=== PATIENT | female | born 1940 | race Caucasian/White ===

== ENCOUNTER 2024-09-08 20:28 | Inpatient (IN) | payer OTHER, BC ==
[2024-09-08 21:33] LABS: EPI CELLS 9 /uL (0-25.1); HYALINE CASTS 1 /uL (0-3.1); PH,URINE 5.5 (5.0-8.0); URINE APPEARANCE CLOUDY; URINE BACTERIA >9,000 /uL (0-1359); URINE BILIRUBIN NEGATIVE (NEGATIVE); URINE COLOR YELLOW; URINE GLUCOSE (UA) NEGATIVE (NEGATIVE); URINE KETONE NEGATIVE (NEGATIVE); URINE LEUK ESTERASE 3+ (NEGATIVE); URINE NITRITE POSITIVE (NEGATIVE); URINE PROTEIN TRACE (NEGATIVE); URINE RBC 21 /uL (0-23.9); URINE UROBILINOGEN 0.2 mg/dL (0.2-1.0); URINE WBC 1902 /uL (0-25.8)
[2024-09-08 21:59] LABS: ABSOLUTE IMMATURE GRANULOCYTES 0.06 x10^3/uL (0.0-0.031); BASOPHILS # 0.07 x10^3/uL (0.01-0.08); EOSINOPHILS # 0.12 x10^3/uL (0.04-0.36); HEMATOCRIT 28.5 % (34.1-44.9); HEMOGLOBIN 8.5 g/dL (11.2-15.7); MCHC 29.8 g/dl (32.2-35.5); MEAN CELL VOLUME 81.4 fl (79.4-94.8); MEAN PLT VOLUME 9.2 fl (9.4-12.3); MONOCYTE # 1.27 x10^3/uL (0.24-0.86); MONOCYTE % 10.4 % (4.7-12.5); PLATELET COUNT 423 x10^3/uL (182-369); RDW 15.4 % (12.5-17.0)
[2024-09-08 22:13] LABS: POTASSIUM 4.4 mmol/L (3.5-5.1)
[2024-09-08 22:17] LABS: ALBUMIN 3.4 g/dl (3.4-5.0); BLOOD UREA NITROGEN 21.8 mg/dL (7-18); CALCIUM 9.5 mg/dL (8.5-10.1); MAGNESIUM 2.4 mg/dL (1.8-2.4)
[2024-09-08 22:20] LABS: CREATININE 0.9 mg/dL (0.55-1.3)
[2024-09-08 22:21] LABS: BILIRUBIN,TOTAL 0.7 mg/dL (0.2-1)
[2024-09-08 22:22] LABS: TOT PROT 6.5 g/dl (6.4-8.2)
[2024-09-08] MEDS: CEFTRIAXONE 1,000 MG in DEXTROSE 5%-WATER - 50 ML IVPB ONE (22:55)
[2024-09-08] MEDS ORDERED: CEFTRIAXONE 1 G/50 ML PREMIX 50 ML IVPB ONE (22:58)
[2024-09-09] MEDS: AZITHROMYCIN IVPB 500 MG in DEXTROSE 5%-WATER - 250 ML IVPB ONE (00:06)
[2024-09-09] MEDS ORDERED: AZITHROMYCIN IVPB 500 MG/250 ML BAG IVPB ONE (00:07)
[2024-09-09] MEDS: SODIUM CHLORIDE 1,000 ML IV SCH (01:06)
[2024-09-09 01:58] VITALS: BMI 24.9
[2024-09-09] MEDS: IBUPROFEN 600 MG TABLET (FP) PO ONE (03:21)
[2024-09-09] MEDS: diphenhydrAMINE HCL 25 MG CAPSULE (FP) PO PRN (03:23)
[2024-09-09 07:20] LABS: Reticulocyte % 2.49 % (0.5-1.7)
[2024-09-09 07:22] LABS: ABSOLUTE IMMATURE GRANULOCYTES 0.03 x10^3/uL (0.0-0.031); BASOPHILS # 0.05 x10^3/uL (0.01-0.08); EOSINOPHIL % 4.2 % (0.7-5.8); EOSINOPHILS # 0.39 x10^3/uL (0.04-0.36); HEMATOCRIT 26.3 % (34.1-44.9); HEMOGLOBIN 7.6 g/dL (11.2-15.7); MCHC 28.9 g/dl (32.2-35.5); MEAN CELL VOLUME 83.2 fl (79.4-94.8); MEAN PLT VOLUME 9.4 fl (9.4-12.3); MONOCYTE # 1.23 x10^3/uL (0.24-0.86); MONOCYTE % 13.3 % (4.7-12.5); PLATELET COUNT 396 x10^3/uL (182-369); RDW 15.5 % (12.5-17.0)
[2024-09-09 07:50] LABS: POTASSIUM 4.2 mmol/L (3.5-5.1)
[2024-09-09 07:55] LABS: BLOOD UREA NITROGEN 19.9 mg/dL (7-18)
[2024-09-09 07:58] LABS: CALCIUM 9.2 mg/dL (8.5-10.1); CREATININE 0.8 mg/dL (0.55-1.3); MAGNESIUM 2.1 mg/dL (1.8-2.4)
[2024-09-09] MEDS: ACETAMINOPHEN 325 MG TABLET (FP) PO PRN (08:59)
[2024-09-09] MEDS: CEFTRIAXONE 1 G/50 ML PREMIX 50 ML IVPB SCH (09:11)
[2024-09-09] MEDS: ENOXAPARIN NA (PORCINE) 40 MG/0.4 ML DISP.SYRIN SQ SCH (09:57)
[2024-09-09] MEDS: ASPIRIN COATED 81 MG TABLET.EC PO SCH (09:57)
[2024-09-09] MEDS: VALSARTAN 160 MG TABLET PO SCH (10:05)
[2024-09-09] MEDS: amLODIPine BESYLATE 5 MG TABLET (FP) PO SCH (10:06)
[2024-09-09] MEDS: ATORVASTATIN CA 20 MG TABLET (FP) PO SCH (21:55)
[2024-09-10 07:12] LABS: ABSOLUTE IMMATURE GRANULOCYTES 0.04 x10^3/uL (0.0-0.031); EOSINOPHIL % 8.2 % (0.7-5.8); HEMATOCRIT 25.2 % (34.1-44.9); HEMOGLOBIN 7.3 g/dL (11.2-15.7); MEAN CELL VOLUME 84.6 fl (79.4-94.8); MEAN PLT VOLUME 9.2 fl (9.4-12.3); PLATELET COUNT 328 x10^3/uL (182-369); RDW 15.7 % (12.5-17.0)
[2024-09-10 07:58] LABS: BLOOD UREA NITROGEN 12.6 mg/dL (7-18)
[2024-09-10 07:59] LABS: ALBUMIN 2.7 g/dl (3.4-5.0); MAGNESIUM 2.2 mg/dL (1.8-2.4)
[2024-09-10 08:03] LABS: BILIRUBIN,TOTAL 0.3 mg/dL (0.2-1); TOT PROT 5.3 g/dl (6.4-8.2)
[2024-09-10 08:04] LABS: CREATININE 0.6 mg/dL (0.55-1.3)
[2024-09-10 15:15] LABS: HEMATOCRIT 27.4 % (34.1-44.9); HEMOGLOBIN 7.9 g/dL (11.2-15.7); MCHC 28.8 g/dl (32.2-35.5); MEAN PLT VOLUME 9.6 fl (9.4-12.3); PLATELET COUNT 381 x10^3/uL (182-369); RDW 15.5 % (12.5-17.0)
[2024-09-11 07:58] LABS: ABSOLUTE IMMATURE GRANULOCYTES 0.03 x10^3/uL (0.0-0.031); BASOPHILS # 0.09 x10^3/uL (0.01-0.08); EOSINOPHIL % 8.9 % (0.7-5.8); EOSINOPHILS # 0.67 x10^3/uL (0.04-0.36); HEMATOCRIT 25.6 % (34.1-44.9); HEMOGLOBIN 7.4 g/dL (11.2-15.7); MCHC 28.9 g/dl (32.2-35.5); MEAN CELL VOLUME 83.9 fl (79.4-94.8); MEAN PLT VOLUME 9.6 fl (9.4-12.3); MONOCYTE # 1.06 x10^3/uL (0.24-0.86); MONOCYTE % 14.2 % (4.7-12.5); PLATELET COUNT 347 x10^3/uL (182-369); RDW 15.6 % (12.5-17.0)
[2024-09-11 08:10] LABS: POTASSIUM 4.3 mmol/L (3.5-5.1)
[2024-09-11 08:23] LABS: ALBUMIN 2.7 g/dl (3.4-5.0); BLOOD UREA NITROGEN 10.7 mg/dL (7-18); CALCIUM 8.8 mg/dL (8.5-10.1)
[2024-09-11 08:24] LABS: MAGNESIUM 2.2 mg/dL (1.8-2.4)
[2024-09-11 08:27] LABS: CREATININE 0.6 mg/dL (0.55-1.3)
[2024-09-11 08:28] LABS: BILIRUBIN,TOTAL 0.5 mg/dL (0.2-1); TOT PROT 5.3 g/dl (6.4-8.2)
[2024-09-11] MEDS: FERROUS SO4 325 MG TABLET (FP) PO SCH (10:16)
[2024-09-11] MEDS: CEFTRIAXONE 1 G/50 ML PREMIX 50 ML IVPB SCH (11:20)
[2024-09-12 06:14] VITALS: RESP 18
[2024-09-12 08:35] LABS: ABSOLUTE IMMATURE GRANULOCYTES 0.06 x10^3/uL (0.0-0.031); EOSINOPHIL % 11.1 % (0.7-5.8); EOSINOPHILS # 1.05 x10^3/uL (0.04-0.36); HEMATOCRIT 31.1 % (34.1-44.9); HEMOGLOBIN 9.5 g/dL (11.2-15.7); MCHC 30.5 g/dl (32.2-35.5); MEAN CELL VOLUME 82.5 fl (79.4-94.8); MEAN PLT VOLUME 9.7 fl (9.4-12.3); MONOCYTE # 1.29 x10^3/uL (0.24-0.86); MONOCYTE % 13.7 % (4.7-12.5); PLATELET COUNT 363 x10^3/uL (182-369); RDW 14.9 % (12.5-17.0)
[2024-09-12 08:53] LABS: POTASSIUM 3.9 mmol/L (3.5-5.1)
[2024-09-12 09:00] LABS: CALCIUM 9.4 mg/dL (8.5-10.1)
[2024-09-12 09:01] LABS: BLOOD UREA NITROGEN 9.2 mg/dL (7-18); MAGNESIUM 1.9 mg/dL (1.8-2.4)
[2024-09-12 09:03] LABS: CREATININE 0.6 mg/dL (0.55-1.3)
[2024-09-12 09:05] LABS: BILIRUBIN,TOTAL 2.3 mg/dL (0.2-1); TOT PROT 5.9 g/dl (6.4-8.2)
[2024-09-12 11:01] VITALS: BP 127/67; PULSE 92
[2024-09-12 14:31] VITALS: TEMP 98.2
== END 2024-09-12 14:33 | disposition home or self-care (01) | DRG 312 ==
LOC: JER 20:28 → JERBED 09-09 00:02 → J7W 09-09 01:45 → OBSVTOIN 09-10 11:55
PROVIDERS: ADMIT Hospitalist; ATTEND Physician Assistant
DX: R55 Syncope and collapse (principal); N39.0 Urinary tract infection, site not specified; E86.0 Dehydration; I10 Essential (primary) hypertension; E78.5 Hyperlipidemia, unspecified; D50.9 Iron deficiency anemia, unspecified; B96.20 Unspecified Escherichia coli [E. coli] as the cause of diseases classified elsewhere; D72.829 Elevated white blood cell count, unspecified; L29.9 Pruritus, unspecified; E53.8 Deficiency of other specified B group vitamins; L73.8 Other specified follicular disorders; D75.839 Thrombocytosis, unspecified
CPT/HCPCS: 0241U-QW; 36415; 36430; 71045-TC-FY; 80048; 80053; 81003; 82728; 83540; 83550; 83735; 84100; 84484; 85025; 85027; 86850; 86900; 86901; 86922; 87086; 87186; 93005; 93010; 99285-25; G0378; P9058

== ENCOUNTER 2024-12-31 12:25 | Emergency (ER) | payer OTHER, BC ==
[2024-12-31 13:15] VITALS: BP 138/78; PULSE 85; RESP 18; TEMP 97.5; BMI 23.3
[2024-12-31] MEDS ORDERED: ACETAMINOPHEN 325 MG TABLET (FP) ONE (13:41)
[2024-12-31] MEDS: ACETAMINOPHEN 325 MG TABLET (FP) PO ONE (13:44)
== END 2024-12-31 14:19 | disposition home or self-care (01) ==
LOC: FER 12:25
DX: S69.91XA Unspecified injury of right wrist, hand and finger(s), initial encounter (principal); X50.1XXA Overexertion from prolonged static or awkward postures, initial encounter
CPT/HCPCS: 73110-TC-RT-FY; 73130-TC-RT-FY; 99283-25